=== PATIENT | female | born 1955 | race Caucasian/White ===

== ENCOUNTER 2019-05-15 16:08 | Emergency (ER) | payer MEDICARE, OTHER ==
--- OUTSIDE RECORDS SUMMARY | 2019-05-15 16:44 | XMS REPORT | Continuity of Care Document ---
:1955 External Reference #:[id number] Author Name Issac Dobbins DO, MPH Address [address] [place] [address], [address] [place] [address] Care Team Providers Name Role Phone Dinorah Cruz MD - Orthopaedic Care Team Information Box Car Loader [phone] Surgery Dee Boucher M.D. - Internal Care Team Information Box Car Loader [phone] Medicine Kentrell Feliciano M.D. - Internal Care Team Information Box Car Loader Medicine Problems Description No Information Available Social History Type Date Description Comments Sex Unknown Cigarette Use Current Cigarette Smoker 1/2 Pack Daily ETOH Use Denies alcohol use Tobacco Use Start: Unknown Patient is a current smoker, smokes every day Smoking Status Reviewed: 03/30/19 Patient is a current smoker, smokes every day Allergies, Adverse Reactions, Alerts Active Allergies Reaction Severity Comments Date Benadryl Anaphylaxis 07/31/2015 One A Day Vitamin Anaphylaxis 07/31/2015 Medications Active Medications SIG Qnty Indications Ordering Provider Date Oxycodone HCL si by mouth 100tabs Issac Dobbins DO, 07/31/2015 5mg every 6-8 hours MPH Tablets as directed chronic pain patient Tylenol 1 by mouth as Unknown 325mg Tablets needed CBD 1 as needed Unknown Immunizations Description No Information Available Vital Signs Date Vital Result Comment 03/30/2019 9:30am BP Systolic 116 mmHg BP Diastolic 74 mmHg Heart Rate 76 /min Respiratory Rate 20 /min Height 66 inches 5'6" Weight 112.00 lb Pain Level 7 Pain at this time. Pain Level With Medicine 6 on average with meds Pain Level Without Medicine 9 without meds BMI (Body Mass Index) 18.1 kg/m2 03/04/2019 10:18am BP Systolic 112 mmHg BP Diastolic 74 mmHg Heart Rate 76 /min Respiratory Rate 20 /min Height 66 inches 5'6" Weight 111.00 lb Pain Level 5 Pain at this time. Pain Level With Medicine 5 on average with meds Pain Level Without Medicine 9 without meds BMI (Body Mass Index) 17.9 kg/m2 Results Description No Information Available Procedures Date Code Description Status 01/08/2019 Arthrocentesis Aspiration Inj, Small Joint/Bursa W US Completed Guidance 01/08/201976383 Inject Tendon/Ligament Completed 10/04/2018 62440 Test Autonomic Nervous System, Sudomotor Completed 10/04/2018 75350 Test Autonomic Nervous System, Cardiovagal Innervation Completed Medical Devices Description No Information Available Encounters Type Date Location Provider Dx Diagnosis Office Visit 03/04/2019 Main Office as Of Issac Dobbins DO G89.21 Chronic pain due 10:00a 07/30/13 MPH to trauma M65.88 Other synovitis and tenosynovitis, other site S22.22xG Fracture of body of sternum, subs for fx w delay heal 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 Z63.79 Other stressful life events affecting family and household Office Visit 01/31/2019 9:45a Main Office as Issac Dobbins G89.21 Chronic pain due Of 07/30/13 DO, MPH to trauma M65.88 Other synovitis and tenosynovitis, other site S22.22xG Fracture of body of sternum, subs for fx w delay heal 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 Office Visit 01/08/2019 10:15a Main Office as Issac Dobbins G89.21 Chronic pain due Of 2//14 DO, MPH to trauma M65.88 Other synovitis and tenosynovitis, other site S22.22xG Fracture of body of sternum, subs for fx w delay heal Office Visit 01/03/2019 9:30a Main Office as Issac Dobbins G89.21 Chronic pain due Of 2 DO, MPH to trauma M54.2 Cervicalgia S22.22xG Fracture of body of sternum, subs for fx w delay heal 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 Office Visit 12/03/2018 9:45a Main Office as Issac Dobbins, G89.21 Chronic pain due Of 07/30/13 DO, MPH to trauma S22.22xG Fracture of body of sternum, subs for fx w delay heal M54.2 Cervicalgia 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 Office Visit 11/02/2018 9:45a Main Office as Issac Dobbins G89.21 Chronic pain due Of 07/30/13 DO, MPH to trauma M54.2 Cervicalgia S22.22xG Fracture of body of sternum, subs for fx w delay heal G90.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 Office Visit 10/04/2018 9:45a Main Office as Issac Dobbins G89.21 Chronic pain due Of 07/30/13 DO, MPH to trauma M54.2 Cervicalgia S22.22xG Fracture of body of sternum, subs for fx w delay heal 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 G90.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 Assessments Date Code Description Provider 03/30/2019 G89.21 Chronic pain due to trauma Issac Dobbins DO, MPH 03/30/2019 M65.88 Other synovitis and tenosynovitis, other Issac Dobbins DO , MPH site 03/30/2019 S22.22xG Fracture of body of sternum, subsequent Issac Dobbins DO , MPH encounter for fracture with delayed healing 03/30/2019 M54.2 Cervicalgia Issac Dobbins DO, MPH 03/30/2019 Z79.891 assisted (current) use of opiate analgesic Issac Dobbins DO, MPH 03/04/2019 G89.21 Chronic pain due to trauma Issac Dobbins DO, MPH 03/04/2019 M65.88 Other synovitis and tenosynovitis, other Issac Dobbins DO , MPH site 03/04/2019 S22.22xG Fracture of body of sternum, subsequent Issac Dobbins DO , MPH encounter for fracture with delayed healing 03/04/2019 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 Dobbins, Issac , DO, MPH 03/04/2019 Z63.79 Other stressful life events affecting Dobbins, Issac, DO, MPH family and household 01/31/2019 G89.21 Chronic pain due to trauma Dobbins, Issac, DO, MPH 01/31/2019 M65.88 Other synovitis and tenosynovitis, other Dobbins, Issac, DO , MPH site 01/31/2019 S22.22xG Fracture of body of sternum, subsequent Dobbins, Issac, DO , MPH encounter for fracture with delayed healing 01/31/2019 Z79.891 assisted (current) use of opiate analgesic Dobbins, Issac , DO, MPH 01/08/2019 G89.21 Chronic pain due to trauma Dobbins, Issac, DO, MPH 01/08/2019 M65.88 Other synovitis and tenosynovitis, other Dobbins, Issac, DO , MPH site 01/08/2019 S22.22xG Fracture of body of sternum, subsequent Dobbins, Issac, DO , MPH encounter for fracture with delayed healing 01/03/2019 G89.21 Chronic pain due to trauma Dobbins, Issac, DO, MPH 01/03/2019 M54.2 Cervicalgia Dobbins, Issac, DO, MPH 01/03/2019 S22.22xG Fracture of body of sternum, subsequent Dobbins, Issac, DO , MPH encounter for fracture with delayed healing 01/03/2019 Z79.891 assisted (current) use of opiate analgesic Dobbins, Issac , DO, MPH 12/03/2018 G89.21 Chronic pain due to trauma Dobbins, Issac, DO, MPH 12/03/2018 S22.22xG Fracture of body of sternum, subsequent Dobbins, Issac, DO , MPH encounter for fracture with delayed healing 12/03/2018 M54.2 Cervicalgia Dobbins, Issac, DO, MPH 12/03/2018 Z79.891 assisted (current) use of opiate analgesic Dobbins, Issac , DO, MPH 11/02/2018 G89.21 Chronic pain due to trauma Dobbins, Issac, DO, MPH 11/02/2018 M54.2 Cervicalgia Issac Dobbins DO MPH 11/02/2018 S22.22xG Fracture of body of sternum, subsequent Issac Dobbins DO MPH encounter for fracture with delayed healing 11/02/2018 G90.3 Multi-system degeneration of the autonomic Issac Dobbins DO MPH nervous system 11/02/2018 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 Issac Dobbins DO MPH 10/04/2018 G89.21 Chronic pain due to trauma Issac Dobbins DO MPH 10/04/2018 M54.2 Cervicalgia Issac Dobbins DO MPH 10/04/2018 S22.22xG Fracture of body of sternum, subsequent Issac Dobbins DO MPH encounter for fracture with delayed healing 10/04/2018 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 Symptoms and complaints discussed and reviewed today. No significant changes in physical findings. Continue current medical pain management.M65.88 Other synovitis and tenosynovitis, other siteComments: Chronic. Symptoms and complaints discussed and reviewed today. Physical findings reviewed and warrant intervention. Continue current medical pain management. Injection therapy today - tendon sheath. Informed consent given/ refusal reviewed. See procedure sheet.S22.22xG Fracture of body of sternum, subsequent encounter for fracture with delayed healingComments:Chronic. Symptoms and complaints discussed and reviewed today. No significant changes in physical findings. Continue current medical pain management.M54.2 CervicalgiaComments:Chronic. Symptoms and complaints discussed and reviewed today. No significant changes in physical findings. Continue current medical pain management.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New Labs: Urine Drug Screen, Ordered: 03/30/19Comments:Urine drug screen sample taken today to monitor opiate use and to monitor use of illicit substances.Will discuss results at next appointment.The following tests were ordered:6 AM, AMPH , CARLOS, ARSENIO, BUP, CARIS, COCM, COT, ETG, FENT, MCSHSG, OPI, OXY, PCP, TAPEN, XTSY, ZOLP. A urine drug test (UDT) was ordered for this patient and collected on site today. Creatinine has been ordered as well for specimen validity, not for kidney function. Preliminary UDT results are not final and should not be used to determine patient care or plan of treatment. Initially a qualitative immunoassay screen will be done. Any inconsistent or positive findings will be further tested with a more comprehensive quantitative confirmation LCMS study. It is part of the treatment process of prescribing controlled substances and is considered standard of care.AllComments:Continue current medical pain management; injection therapy, osteopathic manipulation, PT / modalities, and consults as needed to manage chronic pain.Non - opioid pain management discussed and optionsdiscussed.Side effects discussed; anticipatory guidance given. Patient clearly understand and agree with all medical treatments and suggestions. 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 Importance of regular nutrition throughout the day discussed.Activity as toleratedContinue with PCP Functional Status Description No Information Available Mental Status Description No Information Available Referrals Description No Information Available
--- OUTSIDE RECORDS SUMMARY | 2019-05-15 16:44 | XMS REPORT | Continuity of Care Document ---
:1955 External Reference #:[id number] Author Name Issac Dobbins DO, MPH Address [address] [place] [address], [address] [place] [address] Care Team Providers Name Role Phone Dinorah Cruz MD - Orthopaedic Care Team Information Architectural Technician Surgery Dee Boucher M.D. - Internal Care Team Information Architectural Technician Medicine Kentrell Feliciano M.D. - Internal Care Team Information Architectural Technician Medicine Problems Description No Information Available Social History Type Date Description Comments Sex Unknown Cigarette Use Current Cigarette Smoker 1/2 Pack Daily ETOH Use Denies alcohol use Tobacco Use Start: Unknown Patient is a current smoker, smokes every day Smoking Status Reviewed: 05/03/19 Patient is a current smoker, smokes every [...] Available Vital Signs Date Vital Result Comment 05/03/2019 9:19am BP Systolic 120 mmHg BP Diastolic 74 mmHg Heart Rate 70 /min Respiratory Rate 20 /min Height 66 inches 5'6" Weight 115.00 lb Pain Level 6 Pain at this time. Pain Level With Medicine 5 on average with meds Pain Level Without Medicine 9 without meds BMI (Body Mass Index) 18.6 kg/m2 03/30/2019 9:30am BP Systolic 116 mmHg BP Diastolic 74 mmHg Heart Rate 76 /min Respiratory Rate 20 /min Height 66 inches 5'6" Weight 112.00 lb Pain Level 7 Pain at this time. Pain Level With Medicine 6 on average with meds Pain Level Without Medicine 9 without meds BMI (Body Mass Index) 18.1 kg/m2 Results Description No Information Available Procedures Date Code Description Status 01/08/2019 Arthrocentesis Aspiration Inj, Small Joint/Bursa W US Completed Guidance 01/08/2019 Inject Tendon/Ligament Completed Medical Devices Description No Information Available Encounters Type Date Location Provider Dx Diagnosis Office Visit 03/30/2019 Main Office as Of Issac Dobbins DO, G89.21 Chronic pain due 9:15a 07/30/13 MPH to trauma M65.88 Other synovitis and tenosynovitis, other site S22.22xG Fracture of body of sternum, subs for fx w delay heal M54.2 Cervicalgia 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 Office Visit 03/04/2019 10:00a Main Office as Issac Dobbins G89.21 Chronic pain due Of 07/30/13 DO, MPH to trauma M65.88 Other synovitis and tenosynovitis, other site S22.22xG Fracture of body of sternum, subs for fx w delay heal 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 Z63.79 Other stressful life events affecting family and household Office Visit 01/31/2019 9:45a Main Office as Issac Dobbins G89.21 Chronic pain due Of 07/30/13 DO, MPH to trauma M65.88 Other synovitis and tenosynovitis, other site S22.22xG Fracture of body of sternum, subs for fx w delay heal 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 Office Visit 01/08/2019 10:15a Main Office as Issac Dobbins G89.21 Chronic pain due Of 2 DO, MPH to trauma M65.88 Other synovitis and tenosynovitis, other site S22.22xG Fracture of body of sternum, subs for fx w delay heal Office Visit 01/03/2019 9:30a Main Office as Issac Dobbins G89.21 Chronic pain due Of 07/30/13 , MPH to trauma M54.2 Cervicalgia S22.22xG Fracture of body of sternum, subs for fx w delay heal 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 Office Visit 12/03/2018 9:45a Main Office as Issac Dobbins G89.21 Chronic pain due Of 07/30/13 DO MPH to trauma S22.22xG Fracture of body of sternum, subs for fx w delay heal M54.2 Cervicalgia 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 Assessments Date Code Description Provider 05/03/2019 G89.21 Chronic pain due to trauma Issac Dobbins DO, MPH 05/03/2019 M54.2 Cervicalgia Issac Dobbins DO, MPH 05/03/2019 S22.22xG Fracture of body of sternum, subsequent DobbinsIssac [place], DO , MPH encounter for fracture with delayed healing 05/03/2019 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 Issac Dobbins , DO, MPH 03/30/2019 G89.21 Chronic pain due to trauma DobbinsIssac washington, DO, MPH 03/30/2019 M65.88 Other synovitis and tenosynovitis, other DobbinsIssac washington, DO , MPH site 03/30/2019 S22.22xG Fracture of body of sternum, subsequent DobbinsIssac washington, DO , MPH encounter for fracture with delayed healing 03/30/2019 M54.2 Cervicalgia Issac Dobbins DO, MPH 03/30/2019 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 DobbinsIssac washington , DO, MPH 03/04/2019 G89.21 Chronic pain due to trauma DobbinsIssac washington, DO, MPH 03/04/2019 M65.88 Other synovitis and tenosynovitis, other DobbinsIssac washington, DO , MPH site 03/04/2019 S22.22xG Fracture of body of sternum, subsequent DobbinsIssac washington, DO , MPH encounter for fracture with delayed healing 03/04/2019 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 DobbinsIssac washington , DO, MPH 03/04/2019 Z63.79 Other stressful life events affecting DobbinsIssac washington, DO, MPH family and household 01/31/2019 G89.21 Chronic pain due to trauma DobbinsIssac washington DO, MPH 01/31/2019 M65.88 Other synovitis and tenosynovitis, other DobbinsIssac washington DO , MPH site 01/31/2019 S22.22xG Fracture of body of sternum, subsequent DobbinsIssac washington, DO , MPH encounter for fracture with delayed healing 01/31/2019 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 DobbinsIssac mao , DO, MPH 01/08/2019 G89.21 Chronic pain due to trauma DobbinsIssac washington DO, MPH 01/08/2019 M65.88 Other synovitis and tenosynovitis, other Dobbins, DO Issac , MPH site 01/08/2019 S22.22xG Fracture of body of sternum, subsequent DobbinsIssac washington, DO , MPH encounter for fracture with delayed healing 01/03/2019 G89.21 Chronic pain due to trauma DobbinsIssac washington DO, MPH 01/03/2019 M54.2 Cervicalgia DobbinsIssac washington DO, MPH 01/03/2019 S22.22xG Fracture of body of sternum, subsequent DobbinsIssac washington, DO , MPH encounter for fracture with delayed healing 01/03/2019 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 Issac Dobbins DO, MPH 12/03/2018 G89.21 Chronic pain due to trauma DobbinsIssac washington DO, MPH 12/03/2018 S22.22xG Fracture of body of sternum, subsequent DobbinsIssac washington, DO , MPH encounter for fracture with delayed healing 12/03/2018 M54.2 Cervicalgia DobbinsIssac washington, DO, MPH 12/03/2018 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 Symptoms and complaints discussed and reviewed today. No significant changes in physical findings. Continue current medical pain management.M54.2 CervicalgiaComments:Chronic. Symptoms and complaints discussed and reviewed today. No significant changes in physical findings. Continue current medical pain management.S22.22xG Fracture of body of sternum, subsequent encounter for fracture with delayed healingComments:Chronic. Symptoms and complaints discussed and reviewed today. No significant changes in physical findings. Continue current medical pain management.Z79.891 manager terminal ( current) use of opiate analgesicNew Labs:Urine Drug Screen, Ordered: Comments:Urine drug screen sample taken today to monitor opiate use and to monitor use of illicit substances.Will discuss results at next appointment.The following tests were ordered:6 AM, AMPH, CARLOS, ARSENIO, BUP, CARIS, COCM, ETG, FENT , MCSHSG, OPI, OXY, PCP, TAPEN, XTSY, ZOLP. A urine drug test (UDT) was ordered for this patient and collected on site today. Creatinine has been ordered as well for specimen validity, not for kidney function. Preliminary UDT results are not final and should not be used to determine patient care or plan of treatment. Initially a qualitative immunoassay screen will bedone. 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 Importance of regular nutrition throughout the day discussed.Activity as toleratedContinue with PCP Functional Status Description No Information Available Mental Status Description No Information Available Referrals Description No Information Available
[2019-05-15 17:32] VITALS: BP 153/80
--- NOTE | 2019-05-15 18:04 | UC ---
Hand/Wrist HPI - HPI Summary HPI Summary: C/O right dorsal hand pain x 4 days with no trauma. Worse with movement, gripping. No swelling, but feels a lump on the radial side of the dorsum. - History Of Current Complaint Chief Complaint: UCUpperExtremity Stated Complaint: RIGHT HAND PAIN X 4 DAYS Hx Obtained From: Patient Onset/Duration: Gradual Onset, Lasting Days - 4 Severity Initially: Mild Severity Currently: Moderate Pain Intensity: 7 Character Of Pain: Dull, Aching Aggravating Factor(s): Movement, Lifting, Flexion, Extension Alleviating Factor(s): Rest Associated Signs And Symptoms: Positive: Swelling - ? lump on the dorsal radial side. - Allergies/Home Medications Allergies/Adverse Reactions: Allergies Allergy/AdvReac Type Severity Reaction Status Date / Time diphenhydramine Allergy Intermediate Hives Verified 05/15/19 17:33 [From Benadryl] tizanidine AdvReac Vomiting Verified 05/15/19 17:33 gelatin capsules Allergy Unknown Unknown Uncoded 05/15/19 17:33 Reaction Details PMH/Surg Hx/FS Hx/Imm Hx - Surgical History Surgical History: Yes Surgery Procedure, Year, and Place: TONSILECTOMY, PARTIAL HYSTERECTOMY,EAR TUBES CHILD,APPENDIX - Family History Known Family History: Positive: Hypertension, Other - OSTEOPOROSIS - Social History Occupation: Disabled Lives: Alone Alcohol Use: None Alcohol Amount: no ETOH in 1 year Substance Use Type: Marijuana Substance Use Comment - Amount & Last Used: daily Smoking Status (MU): Heavy Every Day Tobacco Smoker Type: Cigarettes Amount Used/How Often: reports 1/2 ppd Length of Time of Smoking/Using Tobacco: 40+ years Household Exposure Type: Cigarettes Cessation Counseling: Patient Advised to Stop - Immunization History Most Recent Influenza Vaccination: none Review of Systems All Other Systems Reviewed And Are Negative: Yes Musculoskeletal: Positive: Arthralgia - right hand Physical Exam Triage Information Reviewed: Yes Appearance: Well-Appearing, Pain Distress - mild, Thin Vital Signs: Initial Vital Signs Temp 97.4 F 05/15/19 17:27 Pulse 71 05/15/19 17:27 Resp 17 05/15/19 17:27 BP 153/80 05/15/19 17:27 Pulse Ox 100 05/15/19 17:27 Vital Signs Reviewed: Yes Eyes: Positive: Conjunctiva Clear Neck exam: Normal Respiratory: Positive: Lungs clear Cardiovascular Exam: Normal Musculoskeletal: Positive: Strength Intact, ROM Intact - but pain with full extension and flexion, Other: - Tenderness over the right hand / wrist extensor tendons. Pain with resisted extension. "lump" on the right dorsum is similar to bump on the left hand. Neurological Exam: Normal Psychological Exam: Normal Skin Exam: Normal Hand/Wrist Course/Dx - Differential Dx/Diagnosis Differential Diagnosis/HQI/PQRI: Cellulitis, Contusion, Sprain, Strain, Tendonitis Provider Diagnosis: Tendonitis of right hand Discharge ED - Sign-Out/Discharge Documenting (check all that apply): Patient Departure All imaging exams completed and their final reports reviewed: No Studies - Discharge Plan Condition: Stable Disposition: HOME Patient Education Materials: Tendinitis (ED) Referrals: Kentrell Feliciano MD [Primary Care Provider] - Karen Conroy MD [Medical Doctor] - If Needed (if pain doesn't resolve with rest and the splint) Additional Instructions: Use ice if it is more irritated. - Billing Disposition and Condition Condition: STABLE Disposition: Home
== END 2019-05-15 18:23 | disposition home or self-care (01) ==
LOC: UCCORT 16:08
DX: M77.9 Enthesopathy, unspecified (principal); F17.210 Nicotine dependence, cigarettes, uncomplicated; Z88.8 Allergy status to other drugs, medicaments and biological substances
CPT/HCPCS: 99212; G0463

== ENCOUNTER 2019-07-20 12:26 | Emergency (ER) | payer MEDICARE ==
--- OUTSIDE RECORDS SUMMARY | 2019-07-20 12:32 | XMS REPORT | Continuity of Care Document ---
:1955 External Reference #:[id number] Author Name Issac Dobbins DO, MPH Address [address] [place] [address], [address] [place] [address] Care Team Providers Name Role Phone Dinorah Cruz MD - Orthopaedic Care Team Information Electric Hoist Operator Surgery Dee Boucher M.D. - Internal Care Team Information Electric Hoist Operator Medicine Kentrell Feliciano M.D. - Internal Care Team Information Electric Hoist Operator [phone] Medicine Problems Description No Information Available Social History Type Date Description Comments Sex Unknown Cigarette Use Current Cigarette Smoker 1/2 Pack Daily ETOH Use Denies alcohol use Tobacco Use Start: Unknown Patient is a current smoker, smokes every day Smoking Status Reviewed: 06/30/19 Patient is a current smoker, smokes every [...] Available Vital Signs Date Vital Result Comment 06/30/2019 10:30am BP Systolic 116 mmHg BP Diastolic 70 mmHg Heart Rate 72 /min Respiratory Rate 20 /min Height 66 inches 5'6" Weight 116.00 lb Pain Level 5 Pain at this time. Pain Level With Medicine 4 on average with meds Pain Level Without Medicine 9 without meds BMI (Body Mass Index) 18.7 kg/m2 06/01/2019 9:56am BP Systolic 124 mmHg BP Diastolic 72 mmHg Heart Rate 76 /min Respiratory Rate 20 /min Height 66 inches 5'6" Weight 114.00 lb Pain Level 6 Pain at this time. Pain Level With Medicine 5 on average with meds Pain Level Without Medicine 9 without meds BMI (Body Mass Index) 18.4 kg/m2 Results Description No Information Available Procedures Date Code Description Status 01/08/2019 Arthrocentesis Aspiration Inj, Small Joint/Bursa W US Completed Guidance 01/08/2019 Inject Tendon/Ligament Completed Medical Devices Description No Information Available Encounters Type Date Location Provider Dx Diagnosis Office Visit 06/01/2019 Main Office as Of Issac Dobbins DO, G89.21 Chronic pain due 9:45a 07/30/13 MPH to trauma M54.2 Cervicalgia S22.22xG Fracture of body of sternum, subs for fx w delay heal M65.88 Other synovitis and tenosynovitis, other site 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 Office Visit 05/03/2019 9:15a Main Office as Issac Dobbins G89.21 Chronic pain due Of 07/30/13 DO, MPH to trauma M54.2 Cervicalgia S22.22xG Fracture of body of sternum, subs for fx w delay heal 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 Office Visit 03/30/2019 9:15a Main Office as Issac Dobbins G89.21 Chronic pain due Of 07/30/13 DO, MPH to trauma M65.88 Other synovitis and tenosynovitis, other site S22.22xG Fracture of body of sternum, subs for fx w delay heal M54.2 Cervicalgia 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 Office Visit 03/04/2019 10:00a Main Office as Issac Dobbins G89.21 Chronic pain due Of 214 DO, MPH to trauma M65.88 Other synovitis and tenosynovitis, other site S22.22xG Fracture of body of sternum, subs for fx w delay heal 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 Z63.79 Other stressful life events affecting family and household Office Visit 01/31/2019 9:45a Main Office as Issac Dobbins, G89.21 Chronic pain due Of 07/30/13 DO, MPH to trauma M65.88 Other synovitis and tenosynovitis, other site S22.22xG Fracture of body of sternum, subs for fx w delay heal Z79.891 longterm (current) use of opiate analgesic Office Visit [...] subs for fx w delay heal Z79.891 longterm (current) use of opiate analgesic Assessments Date Code Description Provider 06/30/2019 G89.21 Chronic pain due to trauma Issac Dobbins DO, MPH 06/30/2019 M54.2 Cervicalgia DobbinsIssac washington DO, MPH 06/30/2019 S22.22xG Fracture of body of sternum, subsequent DobbinsIssac washington, DO , MPH encounter for fracture with delayed healing 06/30/2019 Z79.891 longterm (current) use of opiate analgesic Issac Dobbins DO, MPH 06/01/2019 G89.21 Chronic pain due to trauma Issac Dobbins DO, MPH 06/01/2019 M54.2 Cervicalgia DobbinsIssac washington, DO, MPH 06/01/2019 S22.22xG Fracture of body of sternum, subsequent DobbinsIssac washington, DO , MPH encounter for fracture with delayed healing 06/01/2019 M65.88 Other synovitis and tenosynovitis, other DobbinsIssac washington, DO , MPH site 06/01/2019 Z79.891 longterm (current) use of opiate analgesic Issac Dobbins , DO, MPH 05/03/2019 G89.21 Chronic pain due to trauma DobbinsIssac washington, DO, MPH 05/03/2019 M54.2 Cervicalgia Dobbins, Issac, DO, MPH 05/03/2019 S22.22xG Fracture of body of sternum, subsequent Dobbins, Issac, DO , MPH encounter for fracture with delayed healing 05/03/2019 Z79.891 longterm (current) use of opiate analgesic Dobbins, Issac , DO, MPH 03/30/2019 G89.21 Chronic pain due to trauma Dobbins, Issac, DO, MPH 03/30/2019 M65.88 Other synovitis and tenosynovitis, other Dobbins, Issac, DO , MPH site 03/30/2019 S22.22xG Fracture of body of sternum, subsequent Dobbins, Issac, DO , MPH encounter for fracture with delayed healing 03/30/2019 M54.2 Cervicalgia Dobbins, Issac, DO, MPH 03/30/2019 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 Dobbins, Issac , DO, MPH 03/04/2019 G89.21 Chronic pain due to trauma Dobbins, Issac, DO, MPH 03/04/2019 M65.88 Other synovitis and tenosynovitis, other Dobbins, Issac, DO , MPH site 03/04/2019 S22.22xG Fracture of body of sternum, subsequent Dobbins, Issac, DO , MPH encounter for fracture with delayed healing 03/04/2019 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 Dobbins, Issac [...] for fracture with delayed healing 01/31/2019 Z79.891 longterm (current) use of opiate analgesic Dobbins, Issac , DO, MPH 01/08/2019 G89.21 Chronic pain due to trauma Issac Dobbins DO, MPH 01/08/2019 M65.88 Other synovitis and tenosynovitis, other Issac Dobbins DO MPH site 01/08/2019 S22.22xG Fracture of body of sternum, subsequent Issac Dobbins DO MPH encounter for fracture with delayed healing 01/03/2019 G89.21 Chronic pain due to trauma Issac Dobbins DO, MPH 01/03/2019 M54.2 Cervicalgia Issac Dobbins DO, MPH 01/03/2019 S22.22xG Fracture of body of sternum, subsequent Issac Dobbins DO MPH encounter for fracture with delayed healing 01/03/2019 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 Continue current medical pain management.Z79.891 longterm ( current) use of opiate analgesicNew Labs:Urine [...] while maintaining satisfactory side effect profile andminimizing manager long term care end-organ damage. Importance of regular nutrition throughout the day discussed.Activity as toleratedContinue with PCP Functional Status Description No Information Available Mental Status Description No Information Available Referrals Description No Information Available
--- OUTSIDE RECORDS SUMMARY | 2019-07-20 12:32 | XMS REPORT | Continuity of Care Document ---
:1955 External Reference #:[id number] Author Name Issac Dobbins DO, MPH Address [address] [place] [address], [address] [place] [address] Care Team Providers Name Role Phone Dinorah Cruz MD - Orthopaedic Care Team Information Fast Food Attendant [phone] Surgery Dee Boucher M.D. - Internal Care Team Information Fast Food Attendant Medicine Kentrell Feliciano M.D. - Internal Care Team Information Fast Food Attendant Medicine Problems Description No Information Available Social History Type Date Description Comments Sex Unknown Cigarette Use Current Cigarette Smoker 1/2 Pack Daily ETOH Use Denies alcohol use Tobacco Use Start: Unknown Patient is a current smoker, smokes every day Smoking Status Reviewed: 06/01/19 Patient is a current smoker, smokes every [...] Available Vital Signs Date Vital Result Comment 06/01/2019 9:56am BP Systolic 124 mmHg BP Diastolic 72 mmHg Heart Rate 76 /min Respiratory Rate 20 /min Height 66 inches 5'6" Weight 114.00 lb Pain Level 6 Pain at this time. Pain Level With Medicine 5 on average with meds Pain Level Without Medicine 9 without meds BMI (Body Mass Index) 18.4 kg/m2 05/03/2019 9:19am BP Systolic 120 mmHg BP Diastolic 74 mmHg Heart Rate 70 /min Respiratory Rate 20 /min Height 66 inches 5'6" Weight 115.00 lb Pain Level 6 Pain at this time. Pain Level With Medicine 5 on average with meds Pain Level Without Medicine 9 without meds BMI (Body Mass Index) 18.6 kg/m2 Results Description No Information Available Procedures Date Code Description Status 01/08/2019 Arthrocentesis Aspiration Inj, Small Joint/Bursa W US Completed Guidance 01/08/2019 Inject Tendon/Ligament Completed Medical Devices Description No Information Available Encounters Type Date Location Provider Dx Diagnosis Office Visit 05/03/2019 Main Office as Of Issac Dobbins DO, G89.21 Chronic pain due 9:15a 07/30/13 MPH to trauma M54.2 Cervicalgia S22.22xG Fracture of body of sternum, subs for fx w delay heal 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 Office Visit 03/30/2019 9:15a Main Office as Issac Dobbins G89.21 Chronic pain due Of 07/30/13 DO, MPH to trauma M65.88 Other synovitis and tenosynovitis, other site S22.22xG Fracture of body of sternum, subs for fx w delay heal M54.2 Cervicalgia 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 Office Visit 03/04/2019 10:00a Main Office as Issac Dobbins G89.21 Chronic pain due Of 07/30/13 DO, MPH to trauma M65.88 Other synovitis and tenosynovitis, other site S22.22xG Fracture of body of sternum, subs for fx w delay heal 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 Z63.79 Other stressful life events affecting family and household Office Visit 01/31/2019 9:45a Main Office as Issac Dobbins G89.21 Chronic pain due Of 07/30/13 DO, MPH to trauma M65.88 Other synovitis and tenosynovitis, other site S22.22xG Fracture of body of sternum, subs for fx w delay heal 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 Office Visit [...] for fx w delay heal Z79.891 intermediate (current) use of opiate analgesic Office Visit 12/03/2018 9:45a Main Office as DobbinsIssac washington G89.21 Chronic pain due Of 07/30/13 DO, MPH to trauma S22.22xG Fracture of body of sternum, subs for fx w delay heal M54.2 Cervicalgia Z79.891 intermediate (current) use of opiate analgesic Assessments Date Code Description Provider 06/01/2019 G89.21 Chronic pain due to trauma DobbinsIssac washington DO, MPH 06/01/2019 M54.2 Cervicalgia DobbinsIssac washington, DO, MPH 06/01/2019 S22.22xG Fracture of body of sternum, subsequent DobbinsIssac washington, DO , MPH encounter for fracture with delayed healing 06/01/2019 M65.88 Other synovitis and tenosynovitis, other DobbinsIssac washington, DO , MPH site 06/01/2019 Z79.891 intermediate (current) use of opiate analgesic DobbinsIssac washington DO, MPH 05/03/2019 G89.21 Chronic pain due to trauma DobbinsIssac washington DO, MPH 05/03/2019 M54.2 Cervicalgia DobbinsIssac washington, DO, MPH 05/03/2019 S22.22xG Fracture of body of sternum, subsequent DobbinsIssac washington, DO , MPH encounter for fracture with delayed healing 05/03/2019 Z79.891 intermediate (current) use of opiate analgesic DobbinsDeborah washingtonph , DO, MPH 03/30/2019 G89.21 Chronic pain due to trauma DobbinsIssac washington, DO, MPH 03/30/2019 M65.88 Other synovitis and tenosynovitis, other Dobbins, Issac, DO , MPH site 03/30/2019 S22.22xG Fracture of body of sternum, subsequent Dobbins, Issac, DO , MPH encounter for fracture with delayed healing 03/30/2019 M54.2 Cervicalgia Dobbins, Issac, DO, MPH 03/30/2019 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 Dobbins, Issac , DO, MPH 03/04/2019 G89.21 Chronic pain due to trauma Dobbins, Issac, DO, MPH 03/04/2019 M65.88 Other synovitis and tenosynovitis, other Dobbins, Issac, DO , MPH site 03/04/2019 S22.22xG Fracture of body of sternum, subsequent Dobbins, Issac, DO , MPH encounter for fracture with delayed healing 03/04/2019 Z79.891 intermediate (current) use of opiate analgesic Dobbins, Issac [...] for fracture with delayed healing 01/31/2019 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 Dobbins, Issac [...] fracture with delayed healing 01/03/2019 Z79.891 intermediate (current) use of opiate analgesic Issac Dobbins DO, MPH 12/03/2018 G89.21 Chronic pain due to trauma Issac Dobbins DO, MPH 12/03/2018 S22.22xG Fracture of body of sternum, subsequent Issac Dobbins DO, MPH encounter for fracture with delayed healing 12/03/2018 M54.2 Cervicalgia Issac Dobbins DO, MPH 12/03/2018 Z79.891 intermediate (current) use of opiate analgesic Issac Dobbins DO, MPH Plan of Treatment Future Appointment(s):06/30/2019 10:30 am - Issac Dobbins DO, MPH at Main Office as Of 07/30/1411 - Issac Dobbins DO, MPHG89.21 Chronic pain [...] pain management.M65.88 Other synovitis and tenosynovitis, other siteComments:Chronic. Symptoms and complaints discussed and reviewed today. Physical findings reviewed and warrant intervention. Continue current medical pain management.Z79.891 intermediate teacher ( current) use of opiate analgesicNew Labs:Urine [...] while maintaining satisfactory side effect profile andminimizing terminal carman end-organ damage. Importance of regular nutrition throughout the day discussed.Activity as toleratedContinue with PCP Functional Status Description No Information Available Mental Status Description No Information Available Referrals Description No Information Available
[2019-07-20 12:48] VITALS: BP 140/73
--- NOTE | 2019-07-20 13:05 | UC ---
Respiratory Complaint HPI - HPI Summary HPI Summary: cough x 3 weeks cough is productive , green sputum worse with deep breathing, better with rest, + fever on and off, chills, nasal congestion ,pnd no sob - History of Current Complaint Chief Complaint: UCRespiratory Stated Complaint: COUGH,FEVER Time Seen by Provider: 07/20/19 12:54 Hx Obtained From: Patient Onset/Duration: Gradual Onset, Lasting Weeks - 3, Still Present Severity Initially: Moderate Severity Currently: Moderate Pain Intensity: 0 Aggravating Factors: Exertion, Deep Breaths Alleviating Factors: Nothing Associated Signs And Symptoms: Positive: Fever, Chills, URI, Nasal Congestion. Negative: Dyspnea, Wheezing - Allergies/Home Medications Allergies/Adverse Reactions: Allergies Allergy/AdvReac Type Severity Reaction Status Date / Time diphenhydramine Allergy Intermediate Hives Verified 07/20/19 12:43 [From Benadryl] tizanidine AdvReac Vomiting Verified 07/20/19 12:43 gelatin capsules Allergy Unknown Unknown Uncoded 07/20/19 12:43 Reaction Details PMH/Surg Hx/FS Hx/Imm Hx Previously Healthy: Yes - Surgical History Surgical History: Yes Surgery Procedure, Year, and Place: TONSILECTOMY, PARTIAL HYSTERECTOMY,EAR TUBES CHILD,APPENDIX - Family History Known Family History: Positive: Hypertension, Other - OSTEOPOROSIS - Social History Alcohol Use: None Alcohol Amount: no ETOH in 1 year Substance Use Type: Marijuana Substance Use Comment - Amount & Last Used: daily Smoking Status (MU): Heavy Every Day Tobacco Smoker Type: Cigarettes Amount Used/How Often: reports 1/2 ppd Length of Time of Smoking/Using Tobacco: 40+ years Household Exposure Type: Cigarettes - Immunization History Most Recent Influenza Vaccination: none Review of Systems All Other Systems Reviewed And Are Negative: Yes Constitutional: Positive: Fever, Chills, Fatigue Skin: Positive: Negative Eyes: Positive: Negative ENT: Positive: Nasal Discharge Respiratory: Positive: Cough Is Patient Immunocompromised?: No Physical Exam Triage Information Reviewed: Yes Appearance: Well-Appearing, No Pain Distress, Well-Nourished Vital Signs: Initial Vital Signs Temp 97.9 F 07/20/19 12:43 Pulse 84 07/20/19 12:43 Resp 16 07/20/19 12:43 BP 140/73 07/20/19 12:43 Pulse Ox 100 07/20/19 12:43 Vital Signs Reviewed: Yes Eye Exam: Normal Eyes: Positive: Conjunctiva Clear ENT Exam: Normal ENT: Positive: Normal ENT inspection, Hearing grossly normal, Pharynx normal, Nasal congestion Neck: Positive: Supple, Nontender, No Lymphadenopathy Respiratory: Positive: Chest non-tender, Decreased breath sounds Cardiovascular: Positive: RRR, No Murmur, Pulses Normal Respiratory Course/Dx - Differential Dx/Diagnosis Provider Diagnosis: Bronchitis Discharge ED - Sign-Out/Discharge Documenting (check all that apply): Patient Departure All imaging exams completed and their final reports reviewed: No Studies - Discharge Plan Condition: Stable Disposition: HOME Prescriptions: Doxycycline Hyclate 100 mg PO BID #20 tablet predniSONE [Prednisone 20 MG TAB] 20 mg PO DAILY #5 tablet Patient Education Materials: Acute Bronchitis (ED) Referrals: Kentrell Feliciano MD [Primary Care Provider] - If Needed - Billing Disposition and Condition Condition: STABLE Disposition: Home
== END 2019-07-20 13:07 | disposition home or self-care (01) ==
LOC: UCCORT 12:26
DX: J40 Bronchitis, not specified as acute or chronic (principal); Z88.8 Allergy status to other drugs, medicaments and biological substances; F17.210 Nicotine dependence, cigarettes, uncomplicated
CPT/HCPCS: 99212; G0463

== ENCOUNTER 2024-06-24 10:37 | Observation (INO) ==
[2024-06-24 11:09] LABS: ABS Basophils 0.1 10^3/uL (0.0-0.1); ABS Lymphocytes 0.9 10^3/uL (1.0-4.8); ABS Monocytes 0.4 10^3/uL (0.0-0.9); ABS Neutrophils 8.3 10^3/uL (1.5-7.6); ABS Nucleated RBC 0.01 10^3/ul; Eosinophil % 0.1 %; Hematocrit 46.3 % (35-45); Hemoglobin 16.2 g/dL (11.5-14.3); Lymphocyte % 9.1 %; Mean Corpuscular Hemoglobin 34.7 pg (27-33); Nucleated Red Blood Cells % 0.1 %/100WBC (0.0-0.8); Platelet Count 165 10^3/uL (150-450); Red Blood Count 4.67 10^6/uL (3.63-4.92); Red Cell Distribution Width 13.1 % (12-17); White Blood Count 9.6 10^3/uL (3.8-11.8)
[2024-06-24 11:21] LABS: INR 1.05 (0.85-1.14)
[2024-06-24 11:30] LABS: High Sens Troponin Baseline 8 pg/mL (<15)
[2024-06-24 12:45] LABS: High Sensitivity Troponin 1 Hr 8 pg/mL (<15)
[2024-06-24 12:47] LABS: ALT 17 U/L (7-52); Albumin 4.1 g/dL (3.5-5.7); Albumin/Globulin Ratio 1.6 (1-3); Alkaline Phosphatase 123 U/L (35-149); Anion Gap 10 mmol/L (2-16); Blood Urea Nitrogen 10 mg/dL (6-24); CO2 Carbon Dioxide 22 mmol/L (22-32); Calcium 9.1 mg/dL (8.6-10.3); Chloride 101 mmol/L (101-111); Creatinine, Serum 0.67 mg/dL (0.51-0.95); Globulin 2.6 g/dL (2-4); Glucose 137 mg/dL (70-100); Sodium 133 mmol/L (135-145); Total Bilirubin 0.9 mg/dL (0.2-1.0); Total Protein 6.7 g/dL (6.4-8.9)
[2024-06-24] MEDS ORDERED: Polyethylene Glycol 3350 17 GM PACKET PO PRN (13:14)
[2024-06-24] MEDS: Morphine 10 MG/ML VIAL (1 ml) IV ONE (13:17)
[2024-06-24] MEDS ORDERED: HYDROmorphone 1 MG/1 ML SYRINGE IV SLOW PU PRN (14:30)
[2024-06-24] MEDS ORDERED: Naloxone 0.4 mg VIAL 0.4 mg/ml 1 ml VIAL IV PUSH PRN (14:31)
[2024-06-24] MEDS: Iohexol 350 (CONTRAST) 500 ML MDV IV ONE (15:44)
[2024-06-24 17:09] LABS: Potassium Redraw 4.3 mmol/L (3.5-5.0)
[2024-06-24] MEDS: cefTRIAXone 2 gm/50 mL D5W 2 GM/50 ML BAG IV SCH ×2 (17:38→19:36)
[2024-06-24] MEDS: Senna TAB 8.6 mg TAB PO SCH (20:12)
[2024-06-24] MEDS: Enoxaparin 40 MG/0.4 ML SYR SUBCUT SCH (20:12)
[2024-06-24] MEDS: HYDROmorphone 1 MG/1 ML SYRINGE IV SLOW PU PRN (20:12)
[2024-06-25 06:49] LABS: Calcium 9.1 mg/dL (8.6-10.3); Creatinine, Serum 0.71 mg/dL (0.51-0.95); Potassium 4.4 mmol/L (3.5-5.0); eGFR CKD-EPI 91.4 (>60)
[2024-06-25] MEDS: HYDROmorphone 1 MG/1 ML SYRINGE IV SLOW PU PRN (15:32)
[2024-06-26] MEDS: HYDROmorphone 1 MG/1 ML SYRINGE IV SLOW PU PRN (20:55)
[2024-06-27] MEDS: HYDROmorphone 1 MG/1 ML SYRINGE IV SLOW PU PRN (21:27)
[2024-06-27 23:40] VITALS: BP 116/78
== END 2024-06-27 22:00 | disposition short-term general hospital (02) ==
LOC: EDHOLD 10:37 → ED 10:37 → SUATTDRO 13:14 → MEDTELE 14:37
PROVIDERS: ADMIT Student in an Organized Health Care Education/Training Program; ATTEND Student in an Organized Health Care Education/Training Program